=== PATIENT | female | born 1980 | race Two or more races ===

== ENCOUNTER 2020-07-11 23:34 | Emergency (ER) | payer MEDICAID, OTHER ==
[~2020-07-11] VITALS: Ht 160 cm; Wt 82.6 kg
[2020-07-11 23:34] VITALS: BP 137/83
[2020-07-12] MEDS ORDERED: methylPREDNISolone SOD SUCC 125 MG/2 ML VL IM ONE (05:45)
== END 2020-07-12 06:20 | disposition home or self-care (01) ==
LOC: ER 23:34
DX: J06.9 Acute upper respiratory infection, unspecified (principal); J45.909 Unspecified asthma, uncomplicated; F41.9 Anxiety disorder, unspecified; F32.9 Major depressive disorder, single episode, unspecified; Z20.822 Contact with and (suspected) exposure to COVID-19
CPT/HCPCS: 36415; 71046; 87426; 93005; 96372; 99285; C9803; J2930; U0003